=== PATIENT | male | born 1960 | race Caucasian/White ===

== ENCOUNTER 2016-11-12 12:55 | Emergency (ER) | payer OTHER ==
[~2016-11-12] VITALS: Ht 182.9 cm; Wt 93.2 kg
[~2016-11-12 12:55] MED LIST: IBUP-1827 PO
[2016-11-12 12:59] VITALS: BP 110/80; PULSE 92; RESP 18; O2SAT 100
== END 2016-11-12 16:41 | disposition left against medical advice (07) ==
LOC: SED 12:55
DX: Z53.21 Procedure and treatment not carried out due to patient leaving prior to being seen by health care provider (principal)

== ENCOUNTER 2016-11-14 02:31 | Emergency (ER) | payer OTHER ==
[~2016-11-14] VITALS: Ht 274.3 cm; Wt 93.2 kg
[2016-11-14 02:42] VITALS: BP 117/72; PULSE 94; RESP 24; O2SAT 96
--- NOTE | 2016-11-14 02:43 | ED.REPORT ---
HPI-Extremity Problem Lower Date of Service Nov 14, 2016 ED Provider: Stanford Ornelas MD Pt is a 56 y.o. male who presents to the ED c/o right knee pain onset 1 week ago. Pt states that he "bumped" his knee at work and the pain has gradually worsened since onset. He reports associated difficulty walking due to pain and SOB. He endorses to THC use but denies drug use. Nursing Notes Stated Complaint: RIGHT LEG PAIN Chief Complaint: Extremity Trauma Nursing Notes Reviewed: Yes Allergies: Coded Allergies: Sulfa (Sulfonamide Antibiotics) (Verified Allergy, Unknown, 11/12/16) No Active Prescriptions or Reported Meds General Time Seen by MD: 02:42 Chief Complaint Knee injury right Hx Obtained From: Patient Arrived By: Walk-in Onset Occurred: 1 week ago Symptom Duration: Since onset Caused by: Accidental Context: Occurred at: Workplace Location: : Knee right Quality: Painful Severity: Current: Severe Past Medical History Past Medical History None Past Surgical History None Family History Father - Diabetes mellitus Smoking History Current Every Day Smoker Social History Alcohol Use: "Social" Drug Use: Denies drug use, THC Ambulatory Status Independent Review of Systems Musculoskeletal: Reports: Joint pain (Right knee) Neurologic: Reports: Problem walking (due to pain) Complete sys rev & neg: except as marked. Respiratory: Reports: Shortness of breath Physical Exam Initial Vital Signs Vital Signs (First) Date Time Temp Pulse Resp B/P Pulse Ox O2 Delivery O2 Flow Rate FiO2 11/14/16 02:42 36.6 94 24 117/72 96 Room Air Initial VS: Reviewed, Vital signs normal Head / Eyes: Atraumatic, Normocephalic Respiratory: Breath sounds normal, No respiratory distress Cardiovascular: Regular rate & rhythm, Intact distal pulses Abdomen / GI: No distention Upper Extremities: Vascular intact, Neuro intact Skin: Warm, Dry, No cyanosis Neurologic: Alert, Oriented, Nonfocal Psychiatric: Mood/affect normal, Behavior normal, Normal thought content Lower Extremity / Pelvis / MS: No deformity, Neurologic intact, Vascular intact Right Knee: Positive: Erythema present (around and distal to), Swelling present... (around and distal to), Tenderness present... Trauma / Burn / Environmental: Positive: Abrasion (right knee) No evidence of abscess Ankle / Foot: Atraumatic, Inspection NL, No deformity, Neurologic intact, Vascular intact General/Constitutional: Awake, Alert, Well appearing, Well developed, Well hydrated, Well nourished, Not toxic appearing Interpretation & Diagnostics Lab Results Interpretation Result Diagram: 11/14/16 0303 11/14/16 0303 Test 11/14/16 03:03 White Blood Count 9.8th/mm3 (3.8-10.1) Red Blood Count 4.12mil/mm3 (4.40-5.80) Hemoglobin 12.5g/dL (13.8-17.2) Hematocrit 38.1% (41.0-50.0) Mean Corpuscular Volume 92.5fL (81-100) Mean Corpuscular Hemoglobin 30.3pg (27.0-35.0) Mean Corpuscular Hemoglobin Concent 32.8% (32.0-37.0) Red Cell Distribution Width 13.4% (12.3-15.4) Platelet Count 327bil/L (150-400) Neutrophils (%) (Auto) 72.7% (40-74) Lymphocytes (%) (Auto) 12.7% (14-46) Monocytes (%) (Auto) 10.4% (4-12) Eosinophils (%) (Auto) 3.1% (0-5) Basophils (%) (Auto) 0.8% (0-3) Sodium Level 137mEq/L (134-144) Potassium Level 4.2mEq/L (3.5-5.2) Chloride Level 99mEq/L (97-108) Carbon Dioxide Level 25mmol/L (18-29) Blood Urea Nitrogen 18mg/dL (6-24) Creatinine 1.00mg/dL (0.76-1.27) Estimat Glomerular Filtration Rate 83mL/min (>59) Glucose Level 128mg/dL (60-99) Calcium Level 8.5mg/dL (8.5-10.1) Magnesium Level 2.1mg/dL (1.6-2.6) Total Bilirubin 0.3mg/dL (0.0-1.2) Aspartate Amino Transf (AST/SGOT) 23U/L (0-50) Alanine Aminotransferase (ALT/SGPT) 21U/L (0-44) Alkaline Phosphatase 83U/L (25-150) Total Protein 7.2g/dL (6.4-8.4) Albumin 3.9g/dL (3.4-5.0) Hold Javier Top Tube Received (Received) Lab values outside NL range: no clinical significance. Re-Eval/Medical Decision Med Decision/Clinical Course 56-year-old male who is a right lower extremity cellulitis. He is not febrile and does not have an elevated white blood count. He was given first dose of IV clindamycin 900 mg. This is to be followed by 300 mg 4 times a day for 10 days , prepack dispensed. He will return here if there is significant worsening. Re-Evaluation/Progress : Time of Eval: 04:08 Re-Evaluation/Progress Note: Pt rechecked. Discussed plan for discharge, pt undertsands and agrees with plan. Counseled Regarding: Diagnosis, Lab results, Need for follow-up, When/why to return to ED Discharge & Departure Impression: Primary Impression: Cellulitis of right lower leg Disposition: Home Discharge Condition All VS Reviewed: Yes Condition: Improved Patient Instructions: Cellulitis (ED) Additional Instructions: You receive clindamycin 900 mg IV in the emergency room. This is to be followed by clindamycin 300 mg 4 times a day for the next 10 days. Elevation. Tylenol and/or ibuprofen as needed for pain. Return to the emergency room if he has significant worsening of the redness and swelling. Referrals: NOPCP (PCP) [facility]eep[facility] Attestation Portions of this note were transcribed by Mary Mobley. I, Dr. Ornelas personally performed the history, physical exam and medical decision-making; I reviewed and confirmed the accuracy of the information in the transcribed note. Signed by: Raul Germain, 11/14/16 and 0417. Stanford Ornelas MD Nov 14, 2016 02:43 MARY MOBLEY Nov 14, 2016 02:52
[2016-11-14] MEDS ORDERED: Clindamycin Inj 900 MG in IV Premix 1 EACH IV ONE (02:50)
[2016-11-14 03:15] LABS: BASOPHILS % (AUTO) 0.8 % (0-3); EOSINOPHILS % (AUTO) 3.1 % (0-5); MONOCYTES % (AUTO) 10.4 % (4-12); Mean Corpuscular Hemoglobin 30.3 pg (27.0-35.0); Mean Corpuscular Volume 92.5 fL (81-100); NEUTROPHILS % (AUTO) 72.7 % (40-74); Platelet Count 327 bil/L (150-400)
[2016-11-14 03:36] LABS: Magnesium 2.1 mg/dL (1.6-2.6)
[2016-11-14 04:45] VITALS: BP 123/80; PULSE 89; O2SAT 99
[2016-11-14] MEDS ORDERED: _Clindamycin 150 mg Capsule PO SCH (06:30)
== END 2016-11-14 04:47 | disposition home or self-care (01) ==
LOC: SED 02:31
DX: L03.115 Cellulitis of right lower limb (principal); W22.8XXA Striking against or struck by other objects, initial encounter; Y93.9 Activity, unspecified; Y92.89 Other specified places as the place of occurrence of the external cause; Y99.0 Civilian activity done for income or pay; F17.200 Nicotine dependence, unspecified, uncomplicated; Z88.2 Allergy status to sulfonamides